=== PATIENT | female | born 1995 | race Caucasian/White ===

== ENCOUNTER 2016-08-20 20:26 | Emergency (ER) | payer BC, MEDICAID ==
[2016-08-20 21:03] VITALS: BP 128/76
--- NOTE | 2016-08-20 23:13 | UC ---
Arturo Wadsworth Billy, scribed for Patito Schwab DO on 08/20/16 at 2111 . General HPI - HPI Summary HPI Summary: Patient is a 21 year-old female coming to [facility] with right posterior neck pain and sore throat for approximately 1 week. She states that she may have been exposed to a dormmate with meningitis at [facility]. Patient describes rt sided posterior neck pain(no stiffness), severity 7/10 as well as a burning sore throat, severity 7/10. Sore throat is worse with PO intake, although she has no problem swallowing. She also states she has been eating and drinking fine. Patient reports waking up sweaty yesterday morning, nausea, minimal photophobia("light is annoying"), right ear pain, and pounding headache. No vomiting. No chest pain, cough, or SOB. No back pain or urinary symptoms. Patient was given 300 mg Rifampin prophylactically by school, but she has not taken it yet. - History of Current Complaint Chief Complaint: Stated Complaint: SORE THROAT,NECK & BACK ACHE Time Seen by Provider: 08/20/16 21:04 Hx Obtained From: Patient Onset/Duration: Gradual Onset, Lasting Days, Still Present Timing: Constant Onset Severity: Moderate Current Severity: Moderate Pain Intensity: 7 Pain Location at: Neck, sore throat, headache Character: burning sore throat Aggravating: sore throat worse with PO intake Alleviating: none Associated Signs & Symptoms: Positive: Diaphoresis, Fever - subjective, Headache , Nausea, Other - Earache, photophobia. Negative: Abdominal Pain, Back Pain, Cough, Chest Pain, Dizziness, Dysuria, SOB, Vomiting - Allergy/Home Medications Allergies/Adverse Reactions: Allergies Allergy/AdvReac Type Severity Reaction Status Date / Time No Known Allergies Allergy Verified 05/24/15 15:23 Home Medications: Home Medications RiFAMPin CAP* 300 mg PO DAILY 08/20/16 [History Confirmed 08/20/16] PMH/Surg Hx/FS Hx/Imm Hx - Additional Past Medical History Additional PMH: PMHx of asthma, eating disorder, ADD. Respiratory History Of: Reports: Asthma - Surgical History Surgical History: None - Family History Known Family History: Positive: Unknown - Patient is adopted, but her twin brother has bipolar disorder. - Social History Alcohol Use: Occasionally Substance Use Type: None Smoking Status (MU): Never Smoked Tobacco - Immunization History Most Recent Influenza Vaccination: LAST FALL Review of Systems Constitutional: Other - woke up sweaty yesterday morning Skin: Negative Eyes: Photophobia - "light is annoying" ENT: Ear Ache Respiratory: Negative Cardiovascular: Negative Gastrointestinal: Other - nausea Genitourinary: Negative Motor: Negative Neurovascular: Negative Musculoskeletal: Other: - neck pain Neurological: Headache Psychological: Negative All Other Systems Reviewed And Are Negative: Yes Physical Exam Triage Information Reviewed: Yes Appearance: Well-Appearing, No Pain Distress - Patient is smiling, laughing and comfortable. No sign of pain distress, Well-Nourished Vital Signs: Initial Vital Signs Temp 98.4 F 08/20/16 20:53 Pulse 70 08/20/16 20:53 Resp 97 08/20/16 20:53 BP 128/76 08/20/16 20:53 Pulse Ox 97 08/20/16 20:53 Vital Signs Reviewed: Yes Eyes: Positive: Conjunctiva Clear. Negative: Discharge ENT: Positive: Hearing grossly normal, Pharyngeal erythema, TMs normal, Tonsillar swelling - Equal bilaterally.. Negative: Nasal congestion, Nasal drainage, Tonsillar exudate, Trismus, Muffled/hoarse voice Dental Exam: Normal Neck: Positive: Supple, Tenderness @ - Paraspinal tenderness over the right posterior neck., Enlarged Nodes @ - rt sided. Negative: Nuchal Rigidity Respiratory: Positive: Lungs clear, Normal breath sounds, No respiratory distress, No accessory muscle use Cardiovascular: Positive: RRR, No Murmur Abdomen Description: Positive: Nontender, Soft. Negative: CVA Tenderness (R), CVA Tenderness (L) Bowel Sounds: Positive: Present Musculoskeletal Exam: Normal Musculoskeletal: Positive: Strength Intact Neurological: Positive: Alert, Muscle Tone Normal, Other: - A&Ox3, CN II-XII INTACT, SENSORY MOTOR INTACT, REFLEXES INTACT, NO CEREBELLAR SIGNS, FACIAL SYMMETRY, NEGATIVE ROMBERG, NORMAL GAIT. NEGATIVE KERNIGS & BRUDZINSKIS Psychological: Positive: Age Appropriate Behavior Skin Exam: Normal - Normal dry skin. Course/Dx - Differential Dx - Multi-Symptom Differential Diagnoses: Urinary Tract Infection, Other - strep throat, flu, uri Provider Diagnoses: uri Discharge - Discharge Plan Condition: Stable Disposition: HOME Patient Education Materials: Upper Respiratory Infection (ED) Referrals: Sejal Diaz DO [Primary Care Provider] - (follow up in 3-5 days if not improving) Additional Instructions: RIGHT NOW YOU APPEAR TO HAVE AN UPPER RESPIRATORY TRACT INFECTION. TESTS FOR INFLUENZA, STREP THROAT, AND URINE DIP STICK WERE ALL NEGATIVE. RIGHT NOW, YOUR SYMPTOMS ARE NOt SUSPICIOUS FOR MENINGITIS. HOWEVER, IF YOU DEVELOP ANY OF THE FOLLOWING: FEVER, VOMITING, PHOTOPHOBIA, NECK STIFFNESS, YOU SHOULD VISIT THE EMERGENCY ROOM IMMEDIATELY. IN THE MEANTIME, TAKE THE PROPHYLACTIC DOSE OF RIFAMPIN THAT WAS GIVEN TO YOU. GO HOME AND REST. The documentation as recorded by the kassiibArturo bergeron Billy accurately reflects the service I personally performed and the decisions made by , Patito Schwab DO.
== END 2016-08-20 22:15 | disposition home or self-care (01) ==
LOC: UCEAST 20:26
DX: J06.9 Acute upper respiratory infection, unspecified (principal); Z32.02 Encounter for pregnancy test, result negative
CPT/HCPCS: 81002; 81025; 87502; 87651; 99211; G0463

== ENCOUNTER 2017-07-31 13:20 | Emergency (ER) | payer BC, MEDICAID ==
[2017-07-31 14:50] VITALS: BP 140/71
--- NOTE | 2017-07-31 16:03 | UC ---
General HPI - HPI Summary HPI Summary: Patient presents with an unremarkable past medical history. She presents today with complaints of generalized fatigue, malaise, sore throat, cough and chest congestion. She presents requesting influenza testing She denies chest or abdominal pain, nausea, vomiting, diarrhea. - History of Current Complaint Chief Complaint: UCGeneralIllness Stated Complaint: sore throat, and aches Time Seen by Provider: 07/31/17 15:10 Hx Obtained From: Patient Hx Last Menstrual Period: [id number] Onset/Duration: Gradual Onset, Lasting Days Onset Severity: Mild Current Severity: Moderate Pain Intensity: 7 Associated Signs & Symptoms: Positive: Cough, Fever - Allergy/Home Medications Allergies/Adverse Reactions: Allergies Allergy/AdvReac Type Severity Reaction Status Date / Time No Known Allergies Allergy Verified 05/24/15 15:23 Home Medications: Home Medications Lisdexamfetamine Dimesylate [Vyvanse] 20 mg PO DAILY 07/31/17 [History Confirmed 07/31/17] PMH/Surg Hx/FS Hx/Imm Hx Previously Healthy: Yes - Surgical History Surgical History: None - Family History Known Family History: Positive: Unknown - Patient is adopted, but her twin brother has bipolar disorder. - Social History Occupation: Student Lives: Alone Alcohol Use: Occasionally Substance Use Type: None Smoking Status (MU): Never Smoked Tobacco - Immunization History Most Recent Influenza Vaccination: LAST FALL Review of Systems Constitutional: Fever, Chills, Fatigue Skin: Negative Eyes: Negative ENT: Sore Throat, Ear Ache, Nasal Discharge, Sinus Congestion Respiratory: Cough Cardiovascular: Negative Gastrointestinal: Negative Genitourinary: Negative Motor: Negative Neurovascular: Negative Musculoskeletal: Negative Neurological: Negative Psychological: Negative Is Patient Immunocompromised?: No All Other Systems Reviewed And Are Negative: Yes Physical Exam Triage Information Reviewed: Yes Appearance: Well-Appearing Vital Signs: Initial Vital Signs Temp 98.8 F 07/31/17 14:47 Pulse 67 07/31/17 14:47 Resp 19 07/31/17 14:47 BP 140/71 07/31/17 14:47 Pulse Ox 99 07/31/17 14:47 Vital Signs Reviewed: Yes Eye Exam: Normal ENT: Positive: Pharyngeal erythema Neck exam: Normal Neck: Positive: 1 Respiratory Exam: Normal Cardiovascular Exam: Normal Abdominal Exam: Normal Musculoskeletal Exam: Normal Neurological Exam: Normal Psychological Exam: Normal Skin Exam: Normal Course/Dx - Course Course Of Treatment: URI discharge: This is a pleasant patient with an upper respiratory tract infection. This appears to be viral and without significant evidence of severe respiratory distress, severe upper or lower airway compromise , hypoxemia, toxicity, shock, hemodynamic or cordiopulmonary instability, epiglottitis, peritonsilar abscess, retropharyngeal abscess, bacterial tracheitis, peumonia, or any disease process requiring other immediate surgical or medical intervention at this time. It is understood that if the patient is not improving as exspected or if other new symptoms or signs of concern develop , other etiologies or diagnoses may need to be considered requrring other tests , treatments, consultations, and/or admission. The diagnoses., plan, expectedcourse, follow-up , and return precautions were discussed and all quesions were answered. Infuenza and strep throat swabs were both negative. - Differential Dx - Multi-Symptom Differential Diagnoses: Other - uri Provider Diagnoses: uri Discharge - Discharge Plan Condition: Stable Disposition: HOME Patient Education Materials: Upper Respiratory Infection (DC) Referrals: Asuncion Blue MD [Primary Care Provider] -
== END 2017-07-31 16:09 | disposition home or self-care (01) ==
LOC: UCEAST 13:20
DX: J06.9 Acute upper respiratory infection, unspecified (principal)
CPT/HCPCS: 87502; 87651; 99211; G0463

== ENCOUNTER 2018-06-29 16:18 | Emergency (ER) | payer BC ==
[2018-06-29] MEDS ORDERED: Ketorolac INJ* 60 MG/2 ML VIAL IM ONE (16:38)
--- NOTE | 2018-06-29 16:51 | UC ---
Back Pain HPI - HPI Summary HPI Summary: 23-year-old woman comes to clinic today with a sudden onset of lumbar back pain. Started about an hour ago. It happened suddenly when she sat up. Patient is on an antibiotic for the last 3 days for urinary tract infection. No known fevers. No prior history of back problems. Pain is worse when she twists or turns. Pain is slightly less if she leans forward and slightly to the right. She does have some lower abdominal pain bilaterally which she's had on and off for months. - History of Current Complaint Chief Complaint: UCBackPain Stated Complaint: BACK PAIN Time Seen by Provider: 06/29/18 16:30 Hx Last Menstrual Period: na Pain Intensity: 9 - Allergies/Home Medications Allergies/Adverse Reactions: Allergies Allergy/AdvReac Type Severity Reaction Status Date / Time amphetamine [From Adderall] Allergy Intermediate haulicintio Verified 06/29/18 16:28 ns dextroamphetamine Allergy Intermediate haulicintio Verified 06/29/18 16:28 [From Adderall] ns Home Medications: Home Medications Levonorgestrel (Iud) [Mirena IUD] 20 mcg VAGINAL DAILY 06/29/18 [History Confirmed 06/29/18] Phenazopyridine TAB* [Pyridium 100 mg TAB*] 100 mg PO TID 06/29/18 [History Confirmed 06/29/18] Sulfamethoxazole/Trimethoprim [Sulfamethoxazole-Tmp Ss Tablet] 1 each PO DAILY WITH MEAL 06/29/18 [History Confirmed 06/29/18] PMH/Surg Hx/FS Hx/Imm Hx Previously Healthy: Yes - Surgical History Surgical History: None - Family History Known Family History: Positive: Unknown - Patient is adopted, but her twin brother has bipolar disorder. - Social History Alcohol Use: Occasionally Substance Use Type: None Smoking Status (MU): Never Smoked Tobacco - Immunization History Most Recent Influenza Vaccination: LAST FALL Review of Systems All Other Systems Reviewed And Are Negative: Yes Constitutional: Positive: Negative Skin: Positive: Negative Eyes: Positive: Negative ENT: Positive: Negative Respiratory: Positive: Negative Cardiovascular: Positive: Negative Gastrointestinal: Positive: Abdominal Pain Genitourinary: Positive: Negative Motor: Positive: Negative Neurovascular: Positive: Negative Musculoskeletal: Positive: Other: - LUMBAR BACK PAIN Neurological: Positive: Negative Psychological: Positive: Negative Is Patient Immunocompromised?: No Physical Exam Triage Information Reviewed: Yes Appearance: Well-Appearing, Well-Nourished, Pain Distress - MODERATE Vital Signs: Initial Vital Signs Temp 99.0 F 06/29/18 16:23 Pulse 60 06/29/18 16:23 Resp 20 06/29/18 16:23 BP 137/97 06/29/18 16:23 Pulse Ox 100 06/29/18 16:23 Vital Signs Reviewed: Yes Eye Exam: Normal Eyes: Positive: Conjunctiva Clear Neck exam: Normal Neck: Positive: Supple Respiratory: Positive: Lungs clear, Normal breath sounds, No respiratory distress Cardiovascular: Positive: RRR Abdomen Description: Positive: Soft, CVA Tenderness (L), Other: - MILD TENDERNESS TO PALPATION LOWER ABDOMEN. Negative: CVA Tenderness (R) Bowel Sounds: Positive: Present Musculoskeletal Exam: Normal Musculoskeletal: Positive: Strength Intact, ROM Intact Neurological Exam: Normal Neurological: Positive: Alert, Muscle Tone Normal Psychological Exam: Normal Psychological: Positive: Age Appropriate Behavior Skin Exam: Normal Back Pain Course/Dx - Course Course Of Treatment: Discussed the CT report with the patient and her mother. Patient's a Pyridium therefore the urinalysis results could not be obtained. The CT shows the possibility of renal tubular ectasia. I discussed this with the patient and her mother. The plan is to follow-up with urology for these findings. Patient will take ibuprofen as needed also sent a prescription for Flexeril to use as needed. They know that if anything gets worse the pain gets worse as fevers chills she feels ill that she should go directly to the emergency department. - Differential Dx/Diagnosis Provider Diagnosis: Left flank pain, Lumbar back pain Discharge - Sign-Out/Discharge Documenting (check all that apply): Patient Departure All imaging exams completed and their final reports reviewed: Yes - Discharge Plan Condition: Stable Disposition: HOME Prescriptions: Cyclobenzaprine TAB* [Flexeril 10 MG TAB*] 10 mg PO TID PRN #10 tab MDD 3 PRN Reason: Pain Patient Education Materials: Acute Low Back Pain (ED), Flank Pain (ED), Lower Back Exercises (ED) Referrals: Asuncion Blue MD [Primary Care Provider] - Additional Instructions: FOLLOW UP WITH YOUR PRIMARY CARE DOCTOR IF NOT COMPLETELY IMPROVED. FOLLOW UP WITH UROLOGY FOR FURTHER EVALUATION OF YOUR FLANK PAIN AND POSSIBLE MEDULLARY SPONGE KIDNEY. GO TO THE EMERGENCY DEPARTMENT FOR ANY WORSENING OF YOUR CONDITION; PAIN, FEVER , YOU FEEL ILL OR QUESTIONS OR CONCERNS. - Billing Disposition and Condition Condition: STABLE Disposition: Home
[2018-06-29 18:39] VITALS: BP 125/85
== END 2018-06-29 18:51 | disposition home or self-care (01) ==
LOC: UCEAST 16:18
DX: R10.9 Unspecified abdominal pain (principal); M54.5 Low back pain; Z88.8 Allergy status to other drugs, medicaments and biological substances
CPT/HCPCS: 74176; 84702; 87086; 96372; 99212; G0463; J1885

== ENCOUNTER 2018-07-01 18:38 | Emergency (ER) | payer BC ==
[2018-07-01] MEDS ORDERED: Dexamethasone IV* 4 MG/ML 1 ML (4 MG) IV SLOW PU ONE (19:27)
[2018-07-01] MEDS ORDERED: Ketorolac INJ* 30 MG/ML 1 ML VIAL IV PUSH ONE (19:27)
[2018-07-01] MEDS ORDERED: Methocarbamol* 100 MG/ML 10 ML VIAL IV ONE (19:29)
[2018-07-01 19:47] LABS: ABS Basophils 0 10^3/ul (0-0.2); ABS Eosinophils 0.1 10^3/ul (0-0.6); ABS Lymphocytes 1.5 10^3/ul (1.0-4.8); ABS Monocytes 0.4 10^3/ul (0-0.8); ABS Neutrophils 3.3 10^3/ul (1.5-7.7); ABS Nucleated RBC 0 10^3/ul; Eosinophil % 2.7 %; Hematocrit 45 % (35-47); Lymphocyte % 28.5 %; Mean Corpuscular HGB Conc 33 g/dl (31-36); Mean Corpuscular Hemoglobin 30 pg (27-31); Mean Corpuscular Volume 90 fL (80-97); Mean Platelet Volume 8.5 fL (7.4-10.4); Nucleated Red Blood Cells % 0.1; Platelet Count 195 10^3/ul (150-450); Red Blood Count 5.04 10^6/ul (4.00-5.40); Red Cell Distribution Width 13 % (10.5-15); White Blood Count 5.3 10^3/ul (3.5-10.8)
--- NOTE | 2018-07-01 20:01 | ED ---
GI/ HPI - HPI Summary HPI Summary: 23-year-old female presents with back pain for the past couple weeks. States she has a UTI keeps recurring since April. She is currently on Bactrim. She is taking muscle relaxer with no relief. States she has history of back pain that starts in the lower back and radiates down. Does not go into legs. No loss of bowel or bladder. No fevers. No saddle anesthesias. No weakness. Is able to ambulate with steady gait. States pain is better when she is hunched forward. She denies any abnormal vaginal discharge. No abdominal pain. No nausea and no vomiting. No diarrhea constipation. - History of Current Complaint Chief Complaint: EDUrogenitalProblems Time Seen by Provider: 07/01/18 19:19 Stated Complaint: BACK PAIN/POSS UTI Hx Last Menstrual Period: na Pain Intensity: 7 - Allergy/Home Medications Allergies/Adverse Reactions: Allergies Allergy/AdvReac Type Severity Reaction Status Date / Time amphetamine [From Adderall] Allergy Intermediate haulicintio Verified 07/01/18 19:00 ns dextroamphetamine Allergy Intermediate haulicintio Verified 07/01/18 19:00 [From Adderall] ns PMH/Surg Hx/FS Hx/Imm Hx Endocrine/Hematology History: Denies: Hx Diabetes, Hx Thyroid Disease Cardiovascular History: Denies: Hx Hypertension Respiratory History: Reports: Hx Asthma Denies: Hx Chronic Obstructive Pulmonary Disease (COPD) GI History: Denies: Hx Ulcer Sensory History: Reports: Hx Contacts or Glasses - CONTACTS Opthamlomology History: Reports: Hx Contacts or Glasses - CONTACTS Psychiatric History: Reports: Hx Eating Disorder Denies: Hx of Violent Episodes Against Others - Cancer History Cancer Type, Location and Year: none Infectious Disease History: No Infectious Disease History: Denies: Hx Hepatitis, Hx Human Immunodeficiency Virus (HIV), History Other Infectious Disease, Traveled Outside the [place] in Last 30 Days - Family History Known Family History: Positive: Unknown - Patient is adopted, but her twin brother has bipolar disorder. - Social History Alcohol Use: Occasionally Substance Use Type: Reports: None Smoking Status (MU): Never Smoked Tobacco Review of Systems Negative: Fever Negative: Chest Pain Negative: Shortness Of Breath Positive: dysuria Positive: Myalgia - back pain All Other Systems Reviewed And Are Negative: Yes Physical Exam Triage Information Reviewed: Yes Vital Signs On Initial Exam: Initial Vitals Temp Pulse Resp BP Pulse Ox 97.9 F 91 18 146/82 100 07/01/18 18:59 07/01/18 18:59 07/01/18 18:59 07/01/18 18:59 07/01/18 18:59 Vital Signs Reviewed: Yes Appearance: Positive: Well-Appearing Skin: Positive: Warm, Dry Head/Face: Positive: Normal Head/Face Inspection Eyes: Positive: Normal, Conjunctiva Clear ENT: Positive: Pharynx normal Respiratory/Lung Sounds: Positive: Clear to Auscultation, Breath Sounds Present Cardiovascular: Positive: Normal, RRR Abdomen Description: Positive: Nontender, Soft, CVA Tenderness (R), CVA Tenderness (L) Bowel Sounds: Positive: Present Musculoskeletal: Positive: Limited @ - back, Other - tenderness lower back, neg SLR, good pulses, sensation grossly intact Neurological: Positive: Normal, Normal Gait - patella Psychiatric: Positive: Normal Diagnostics - Vital Signs Vital Signs Temp Pulse Resp BP Pulse Ox 07/01/18 19:50 62 123/83 100 07/01/18 19:20 91 134/83 99 07/01/18 18:59 97.9 F 91 18 146/82 100 - Laboratory Lab Results: Lab Results 07/01/18 Range/Units 19:41 WBC 5.3 (3.5-10.8) 10^3/ul RBC 5.04 (4.00-5.40) 10^6/ul Hgb 15.0 (12.0-16.0) g/dl Hct 45 (35-47) % MCV 90 (80-97) fL MCH 30 (27-31) pg MCHC 33 (31-36) g/dl RDW 13 (10.5-15) % Plt Count 195 (150-450) 10^3/ul MPV 8.5 (7.4-10.4) fL Neut % (Auto) 61.5 % Lymph % (Auto) 28.5 % [place] % (Auto) 6.6 % Eos % (Auto) 2.7 % Baso % (Auto) 0.7 % Absolute Neuts (auto) 3.3 (1.5-7.7) 10^3/ul Absolute Lymphs (auto) 1.5 (1.0-4.8) 10^3/ul Absolute Monos (auto) 0.4 (0-0.8) 10^3/ul Absolute Eos (auto) 0.1 (0-0.6) 10^3/ul Absolute Basos (auto) 0 (0-0.2) 10^3/ul Absolute Nucleated RBC 0 10^3/ul Nucleated RBC % 0.1 Result Diagrams: 07/01/18 19:41 07/01/18 19:41 Lab Statement: Any lab studies that have been ordered have been reviewed, and results considered in the medical decision making process. Re-Evaluation - Re-Evaluation First Eval Re-Evaluation Time: 21:21 Change: Improved Comment: pain is better GIGU Course/Dx - Course Course Of Treatment: 23-year-old female presents with back pain for the past couple weeks. States she has a UTI keeps recurring since April. She is currently on Bactrim. She is taking muscle relaxer with no relief. States she has history of back pain that starts in the lower back and radiates down. Does not go into legs. No loss of bowel or bladder. No fevers. No saddle anesthesias. No weakness. Is able to ambulate with steady gait. States pain is better when she is hunched forward. She denies any abnormal vaginal discharge. No abdominal pain. No nausea and no vomiting. No diarrhea constipation. On exam has tenderness lower back. Neurovascular intact. Negative straight leg raise. Minimal pain over cva. Urine from 2 days ago shows no infection. CT was normal from 2 days ago. Ultrasound normal. White blood cell count normal. crp normal. gave robaxin, toradal and decadron with improvement. will prescribe robaxin. patient understand and agrees with plan. - Diagnoses Differential Diagnoses - Female: Pyelonephritis, Urinary Tract Infection, Other - back pain Provider Diagnoses: Back pain Discharge - Sign-Out/Discharge Documenting (check all that apply): Patient Departure - Discharge Plan Condition: Good Disposition: HOME Prescriptions: Methocarbamol TAB* [Robaxin 500 MG TAB*] 500 mg PO TID PRN #15 tab PRN Reason: Pain methylPREDNISolone [Medrol Dosepak 4 MG*] 4 mg PO .SEE AMIRA INSTRUCTION #1 packet Patient Education Materials: Back Pain (ED) Referrals: Asuncion Blue MD [Primary Care Provider] - Additional Instructions: Follow directions on package for Medrol pack Take robaxin three times a day, stop flexeril Use ibuprofen or Tylenol for pain every 6 hours ice/heat area, move as much as possible Follow up with primary within 5 days Return to ED if develop any new or worsening symptoms - Billing Disposition and Condition Condition: GOOD Disposition: Home
[2018-07-01 20:05] LABS: ALT 20 U/L (7-52); AST 33 U/L (13-39); Albumin 4.9 g/dL (3.2-5.2); Alkaline Phosphatase 42 U/L (34-104); Anion Gap 6 mmol/L (2-11); BUN/Creatinine Ratio 12.3 (8-20); Blood Urea Nitrogen 16 mg/dL (6-24); CO2 Carbon Dioxide 27 mmol/L (22-32); Calcium 10.4 mg/dL (8.6-10.3); Chloride 104 mmol/L (101-111); EGFR Non-African American 51.2 (>60); Globulin 2.4 g/dL (2-4); Glucose 105 mg/dL (70-100); Potassium 4.8 mmol/L (3.5-5.0); Sodium 137 mmol/L (135-145); Total Protein 7.3 g/dL (6.4-8.9)
[2018-07-01 20:11] LABS: HCG Pregnancy < 0.60 mIU/mL
[2018-07-01 20:23] LABS: C Reactive Protein < 1.00 mg/L (<8.01)
[2018-07-01 21:34] VITALS: BP 113/69
== END 2018-07-01 21:33 | disposition home or self-care (01) ==
LOC: ED 18:38
DX: M54.9 Dorsalgia, unspecified (principal); Z87.440 Personal history of urinary (tract) infections; Z88.8 Allergy status to other drugs, medicaments and biological substances
CPT/HCPCS: 36415; 76775; 80053; 84702; 85025; 86140; 96374; 96375; 99282; J1100; J1885; J2800

== ENCOUNTER 2018-10-17 17:17 | Emergency (ER) | payer BC ==
[2018-10-17 17:30] VITALS: BP 124/76
--- NOTE | 2018-10-17 18:01 | UC ---
Throat Pain/Nasal Malachi HPI - HPI Summary HPI Summary: 23 -year-old female who presents with a sore throat over the past couple of days. She was with a friend over the weekend who was diagnosed with mononucleosis. She states that she has had an intermittent sore throat every 2 weeks over the past winter. - History of Current Complaint Chief Complaint: UCGeneralIllness Stated Complaint: SORE THROAT, COUGH, CONGESTION Time Seen by Provider: 10/17/18 17:35 Hx Obtained From: Patient Hx Last Menstrual Period: 09/03/18 ?: No Onset/Duration: Gradual Onset Severity: Mild Pain Intensity: 4 - Allergies/Home Medications Allergies/Adverse Reactions: Allergies Allergy/AdvReac Type Severity Reaction Status Date / Time amphetamine [From Adderall] Allergy Intermediate haulicintio Verified 07/01/18 19:00 ns dextroamphetamine Allergy Intermediate haulicintio Verified 07/01/18 19:00 [From Adderall] ns PMH/Surg Hx/FS Hx/Imm Hx Previously Healthy: Yes - Surgical History Surgical History: None - Family History Known Family History: Positive: Unknown - Patient is adopted, but her twin brother has bipolar disorder. - Social History Alcohol Use: Occasionally Substance Use Type: None Smoking Status (MU): Never Smoked Tobacco - Immunization History Most Recent Influenza Vaccination: LAST FALL Review of Systems All Other Systems Reviewed And Are Negative: Yes ENT: Positive: Sore Throat Gastrointestinal: Positive: Diarrhea - Patient states she's had 4 bouts of diarrhea today. She denies any abdominal pain. Motor: Positive: Other - Patient states she has felt fatigued over the past couple of days. Is Patient Immunocompromised?: No Physical Exam Triage Information Reviewed: Yes Appearance: Well-Appearing, No Pain Distress, Well-Nourished Vital Signs: Initial Vital Signs Temp 97.9 F 10/17/18 17:24 Pulse 66 10/17/18 17:24 Resp 16 10/17/18 17:24 BP 124/76 10/17/18 17:24 Pulse Ox 99 10/17/18 17:24 Vital Signs Reviewed: Yes Eye Exam: Normal ENT: Positive: Pharyngeal erythema, Nasal congestion, Nasal drainage - Clear Nasal coryza, TMs normal, Uvula midline. Negative: Trismus, Muffled voice, Hoarse voice Neck exam: Normal Neck: Positive: Supple, Nontender, No Lymphadenopathy Respiratory: Positive: Lungs clear, Normal breath sounds, No respiratory distress, No accessory muscle use Cardiovascular: Positive: RRR, No Murmur, Pulses Normal, Brisk Capillary Refill Abdomen Description: Positive: Nontender, No Organomegaly, Soft Bowel Sounds: Positive: Present Musculoskeletal: Positive: Strength Intact, ROM Intact Neurological: Positive: Alert, Muscle Tone Normal Psychological: Positive: Normal Response To Family Skin Exam: Normal Throat Pain/Nasal Course/Dx - Course Course Of Treatment: Rapid strep test was negative. The mother requested a Monospot be drawn which was done. Patient can do warm saltwater gargles, throat lozenges, Tylenol for fever definite follow-up with primary care provider as needed if no improvement in symptoms. - Differential Dx/Diagnosis Provider Diagnosis: Pharyngitis Discharge - Sign-Out/Discharge Documenting (check all that apply): Patient Departure All imaging exams completed and their final reports reviewed: No Studies - Discharge Plan Condition: Fair Disposition: HOME Patient Education Materials: Mononucleosis (ED) Referrals: Asuncion Blue MD [Primary Care Provider] - Additional Instructions: Increase fluids, rest, Tylenol for fever every 4 hours as needed or Motrin every 8 hours as needed. We will call you with the results of the Monospot in one or 2 days when it's finished. If no follow up with your primary care provider for further care. - Billing Disposition and Condition Condition: FAIR Disposition: Home
--- NOTE | 2018-10-19 07:11 | UC ---
- Progress Note Progress Note: monospot neg no change renzoj 10/19/18 Course/Dx - Diagnoses Provider Diagnoses: Pharyngitis Discharge - Sign-Out/Discharge Documenting (check all that apply): Post-Discharge Follow Up All imaging exams completed and their final reports reviewed: No Studies - Discharge Plan Condition: Fair Disposition: HOME Patient Education Materials: Mononucleosis (ED) Referrals: Asuncion Blue MD [Primary Care Provider] - Additional Instructions: Increase fluids, rest, Tylenol for fever every 4 hours as needed or Motrin every 8 hours as needed. We will call you with the results of the Monospot in one or 2 days when it's finished. If no follow up with your primary care provider for further care. - Billing Disposition and Condition Condition: FAIR Disposition: Home
[2018-10-19 14:40] LABS: EBV Capsid Ag IgG Ab Positive (Negative); EBV Capsid Ag IgM Ab Negative (Negative); Epstein-Barr Nuclear Antigen Positive (Negative)
== END 2018-10-17 18:14 | disposition home or self-care (01) ==
LOC: UCCORT 17:17
DX: J02.9 Acute pharyngitis, unspecified (principal); Z88.8 Allergy status to other drugs, medicaments and biological substances
CPT/HCPCS: 36415; 86308; 86664; 86665; 87651; 99211; G0463

== ENCOUNTER 2019-09-09 00:59 | Emergency (ER) | payer BC ==
--- OUTSIDE RECORDS SUMMARY | 2019-09-09 01:06 | XMS REPORT | Continuity of Care Document ---
:1995 Author Organization [facility] Address [address] [place] [id number] Phone Care Team Providers Name Role Phone Melissa Berry NP Unavailable Unavailable Allergies, Adverse Reactions, Alerts Substance Reaction Status DEXTROAMPHETAMINE SULFATE Active DEXTROAMPHETAMINE SACCHARATE Active AMPHETAMINE SULFATE Active AMPHETAMINE ASPARTATE Active Medications Medication Instructions Dosage Effective Dates Status Comments (start - stop) METRONIDAZOLE 500 MG TAKE ONE TABLET BY 500 MG - Active TABLET MOUTH EVERY 12 HOURS MIRENA (unknown Not Available - Active strength) Problems Condition Effective Dates Clinical Status Comments (start - stop) Human immunodeficiency virus - [HIV] counseling Encounter for screening for - human immunodeficiency virus Encounter for ot general - cnsl and advice on contraception Encounter for routine checking of intrauterine contracep dev Encntr screen for infections w sexl mode of transmiss Acute vaginitis Dysuria Acute vaginitis Encounter for routine checking of intrauterine contracep dev Encntr screen for infections w sexl mode of transmiss Human immunodeficiency virus - [HIV] counseling Acute vaginitis Encntr screen for infections w sexl mode of transmiss Frequency of micturition Nicotine dependence, unspecified, uncomplicated Encounter for routine checking of intrauterine contracep dev Candidiasis of vulva and vagina Human immunodeficiency virus - [HIV] counseling Encounter for screening for - human immunodeficiency virus Encntr screen for infections w sexl mode of transmiss Acute vaginitis Noninflammatory disorder of vagina, unspecified Encounter for screening for oth infec/parastc diseases Unsp abnormal cytological findings in specimens from vagina Human immunodeficiency virus - [HIV] counseling Encounter for test, result negative Encntr screen for infections w sexl mode of transmiss Encounter for routine checking of intrauterine contracep dev Acute vaginitis Encounter for screening for - human immunodeficiency virus Encntr screen for infections w sexl mode of transmiss Encounter for routine checking of intrauterine contracep dev Noninflammatory disorder of vagina, unspecified Dysuria Acute vaginitis IUC Insertion Anemia, Screening PT, Negative IUC Insertion Yeast-vulvovaginal STI Screening Family Planning Counseling Anemia - Active Managed per PCP, last checked 2015 and "WNL" per patient report Procedures Procedure Date No information Results Test Name Date and Time Measure Units Reference Range Abnormal Flag Status Comments No information Advance Directives Directive Yes / No Effective Date File Name No information Encounters Encounter Practice Location Reason(s) Diagnoses Date Provider Providers Description For Visit Copied on Encounter [facility] [place] . [facility] [address] [facility] [address] [facility], [place], [place], [place], [id number], [id number]. [place] tel:+ tel:[phone] [facility] Referring [facility] [place] immunodeficiency . Provider: [facility] virus [HIV] 0 [address] [facility], counselingEncounter [facility], [address] screening for [address], [address], [facility] human [place], [address], [place], immunodeficiency [place], [place], [id number], [place] [address]. [place], [address]. [place] ot general cnsl tel: tel:+60 tel:+[phone] and advice on [phone] contraceptionEncoun ter for routine checking of intrauterine contracep devEncntr screen for infections w sexl mode of transmissAcute vaginitis [facility] DysuriaAcute [facility] Referring [facility] [place] vaginitisEncounter Mary. Provider: [facility] for routine [address], checking of [place], [address], [address] [place] [address], [place] contracep devEncntr [place], St, [place], [place], [id number], [place] [address], [place], [address]. [place] mode of transmiss [place]. tel:+ [phone] [facility] Jan- [facility] [place] immunodeficiency Melissa. [facility] virus [HIV] [address], counselingAcute [place] [address], St, [place] screen for [place], [place], infections [place]l [place], [id number], mode of transmiss [address]. [place] tel: tel: [phone] [facility] Frequency of Michael- [facility] Referring [facility] [place] micturitionNicotine 0 [place]. Provider: [facility] dependence, [address], unspecified, [place], [address], [address], [address] ter for routine [place], [address], [place], [place], [id number], [place]uter[place] [address], [place], [address]. [place] contracep [place]. tel:+ tel:[phone] devCandidiasis of tel: [phone] vulva and vagina [id number] [facility] [place] Referring [facility] [place] immunodeficiency [facility] Provider: Of [facility] virus [HIV] 9 [address]. [place] [place], counselingEncounter [address] for screening for [place], St, New human St, [address] [place], [place], immunodeficiency [place], [address], [id number], virusEncntr screen [place], [place], [place] [address]. [place], [address]. tel:[phone] sexl mode of tel: tel:+ [phone] transmissAcute [phone] vaginitisNoninflamm atory disorder of vagina, unspecifiedEncounte r for screening for oth infec/parastc diseasesUnsp abnormal cytological findings in specimens from vagina [facility] [place] immunodeficiency [facility] virus [HIV] [address], counselingEncounter [address] for test, St, [facility] result [place], [place], negativeEncntr [id number], screen for [place] infections w sexl tel:[phone] mode of [id number] transmissEncounter for routine checking of intrauterine contracep devAcute vaginitisEncounter for screening for human immunodeficiency virus [facility] Encntr screen for [place] [facility] [place] infections w sexl 2 Mray. [facility] mode of [address], transmissEncounter [place] [address], St, [place] checking of [place], [place]ine [place], [id number], contracep [address], [place] devNoninflammatory [place]. tel:[phone] disorder of vagina, [phone] unspecifiedDysuriaA cute vaginitis [facility] IUC Insertion [facility] Ref[facility] [place] . Provider: [facility] [address], [place], [address], [address], [facility], [address], [place], [place], [place], [id number], [address]. [place], [address]. [place] tel:+60 tel:+607 tel:[phone] [facility] Anemia, [facility] [place] ScreeningPT, Melissa. [facility] NegativeIUC [address], Insertion [place] [address], St, [place], [place], [id number], [address]. [place] tel:+60 tel:[phone] [facility] Yeast-vulvovaginalS [place] [facility] [place] TI ScreeningFamily May. [facility] Planning Counseling [address], [place] [address], St, [place], [place], [id number], [id number]. [place] tel:+60 tel:[phone] Family History Family Member Diagnosis Age At Onset Sister No history of Myocardial infarction Mother No history of Stroke Father No history of Stroke Mother No history of Myocardial infarction Sister No history of Stroke Father No history of Myocardial infarction Brother No history of Myocardial infarction Brother No history of Stroke Immunizations Vaccine Date Status Comments No information Payers Payer name Insurance type Covered green party ID Authorization(s) [facility] [id number] Social History Type Description Quantity Date Captured Comments Sex Female Vital Signs Date / Height Weight BMI Pulse Blood Temperature Respiratory Body Head BMI Pulse Inhaled Time: Rate Pressure Rate Surface Circumference percentile Ox Ox Area No information Chief Complaint And Reason For Visit No information Reason For Referral Reason For Referral No information Plan Of Treatment Date Type Action Status Goal Tobacco cessation counseling completed History Of Present Illness Encounter Date Complaint History Of Present Illness No information Functional Status Date Functional Assessment No information Medications Administered Medication Instructions Dosage Effective Dates (start - stop) Status Comments No information Instructions Date Instruction Additional Information No information Assessments Type Assessment Date No information Goals Health Concern Goal Type Priority Status Date No information Medical Equipment Description Device Aldie Device Identifier Effective Dates (start - stop ) Status No information Mental Status Date Cognitive Assessment No information Health Concerns Observation Date No information Concern Status Date No information
[2019-09-09 02:40] LABS: ABS Eosinophils 0.1 10^3/ul (0-0.6); ABS Lymphocytes 1.2 10^3/ul (1.0-4.8); ABS Monocytes 0.4 10^3/ul (0-0.8); ABS Neutrophils 4.9 10^3/ul (1.5-7.7); Hematocrit 39 % (35-47); Hemoglobin 13.4 g/dL (12.0-16.0); Lymphocyte % 17.8 %; Mean Corpuscular HGB Conc 35 g/dL (31-36); Mean Corpuscular Hemoglobin 31 pg (27-31); Mean Corpuscular Volume 89 fL (80-97); Mean Platelet Volume 8.7 fL (7.4-10.4); Platelet Count 206 10^3/uL (150-450); Red Blood Count 4.33 10^6 /uL (3.70-4.87); Red Cell Distribution Width 13 % (10-15); White Blood Count 6.6 10^3/uL (3.5-10.8)
[2019-09-09 02:42] LABS: Urine Appearance Cloudy; Urine Bilirubin Negative (Negative); Urine Blood Negative (Negative); Urine Color Yellow; Urine Glucose Negative (Negative); Urine Ketones Trace (Negative); Urine Nitrite Negative (Negative); Urine Protein 1+(30 mg/dL) (Negative); Urine Specific Gravity 1.031 (1.010-1.030); Urine Urobilinogen Negative (Negative)
[2019-09-09 02:43] LABS: Urine Bacteria Absent (Absent); Urine Red Blood Cell Trace(0-2/hpf) (Absent); Urine Squamous Epithelial Cell Present (Absent); Urine White Blood Cell Trace(0-5/hpf) (Absent)
[2019-09-09 03:05] LABS: ALT 35 U/L (7-52); AST 46 U/L (13-39); Albumin/Globulin Ratio 1.9 (1-3); Alkaline Phosphatase 60 U/L (34-104); Amylase 172 U/L (29-103); Anion Gap 5 mmol/L (2-11); BUN/Creatinine Ratio 21.2 (8-20); Blood Urea Nitrogen 29 mg/dL (6-24); C Reactive Protein < 1.00 mg/L (<8.01); CO2 Carbon Dioxide 29 mmol/L (22-32); Chloride 105 mmol/L (101-111); EGFR African American 57.8 (>60); EGFR Non-African American 47.8 (>60); Globulin 2.1 g/dL (2-4); Glucose 103 mg/dL (70-100); Potassium 3.8 mmol/L (3.5-5.0); Sodium 139 mmol/L (135-145); Total Protein 6.1 g/dL (6.4-8.9)
[2019-09-09 03:11] LABS: HCG Pregnancy < 0.60 mIU/mL
[2019-09-09] MEDS ORDERED: NS 0.9% 1000 ML** 1,000 ML IV ONE (03:23)
--- NOTE | 2019-09-09 03:33 | ED ---
Abdominal Pain/Female - HPI Summary HPI Summary: This pt is a 24 Y/O F presenting to [facility] with a CC of pain under her L ribs that was rated a 5/10 in severity. She states that at the onset she became nauseous and vomited. She also reports that the pain was increased with breathing and movement. She states that the pain radiate up to her shoulder. She denies any fevers, headaches, myalgia, coughs, and chills. She states that her symptoms have all resolved. She denies any pertinent PMHx. She has a FHx of DM type 2. She states that she ate steak and rice cakes last. - History of Current Complaint Chief Complaint: EDAbdPain Stated Complaint: ABD PAIN PER PT Time Seen by Provider: 09/09/19 02:23 Hx Obtained From: Patient Hx Last Menstrual Period: 09/03/18 ?: No Onset/Duration: Sudden Onset, Lasting Minutes - 40 minutes, Resolved Timing: Minutes - 40 minutes Severity Initially: Moderate Severity Currently: Moderate Pain Intensity: 5 Pain Scale Used: 0-10 Numeric Location: Discrete At: LUQ Radiates: Yes Radiates to: Other - L shoulder Aggravating Factor(s): Movement, Deep Breaths Alleviating Factor(s): Spontaneous Resolution Associated Signs and Symptoms: Positive: Negative - fevers, headaches, myalgia, coughs, and chills., Nausea, Vomiting. Negative: Fever, Cough Allergies/Adverse Reactions: Allergies Allergy/AdvReac Type Severity Reaction Status Date / Time amphetamine [From Adderall] Allergy Intermediate haulicintio Verified 09/09/19 01:01 ns dextroamphetamine Allergy Intermediate haulicintio Verified 09/09/19 01:01 [From Adderall] ns Home Medications: Home Medications Lisdexamfetamine Dimesylate [Vyvanse] 30 mg PO DAILY 07/31/17 [History Confirmed 10/17/18] Levonorgestrel (Iud) [Mirena IUD] 20 mcg VAGINAL DAILY 06/29/18 [History Confirmed 10/17/18] PMH/Surg Hx/FS Hx/Imm Hx Previously Healthy: Yes Endocrine/Hematology History: Denies: Hx Diabetes, Hx Thyroid Disease Cardiovascular History: Denies: Hx Hypertension Respiratory History: Reports: Hx Asthma Denies: Hx Chronic Obstructive Pulmonary Disease (COPD) GI History: Denies: Hx Ulcer Sensory History: Reports: Hx Contacts or Glasses - CONTACTS Opthamlomology History: Reports: Hx Contacts or Glasses - CONTACTS Psychiatric History: Reports: Hx Eating Disorder Denies: Hx of Violent Episodes Against Others - Cancer History Cancer Type, Location and Year: none Hx Chemotherapy: No Hx Radiation Therapy: No - Surgical History Surgical History: None - Immunization History Immunizations Up to Date: Yes Infectious Disease History: No Infectious Disease History: Denies: Hx Hepatitis, Hx Human Immunodeficiency Virus (HIV), History Other Infectious Disease, Traveled Outside the [place] in Last 30 Days - Family History Known Family History: Positive: Unknown - Patient is adopted, but her twin brother has bipolar disorder. - Social History Alcohol Use: Occasionally Hx Substance Use: No Substance Use Type: Reports: None Hx Tobacco Use: No Smoking Status (MU): Never Smoked Tobacco Review of Systems Negative: Fever, Chills Negative: Chest Pain Positive: Shortness Of Breath Positive: Abdominal Pain, Vomiting, Nausea Negative: Myalgia Negative: Headache All Other Systems Reviewed And Are Negative: Yes Physical Exam - Summary Physical Exam Summary: General: Well-developed, Well-nourished female who is mildly anxious appearing. No acute distress. HEENT: Normocephalic, Atraumatic. Eyes: Conjuctiva normal, PERRL. Ears: TMs within normal limits. Nares: (-) discharge, (-) erythema. Oropharynx: Clear, mucous membranes moist, (-) exudates. Neck: Soft, FROM, (-) lymphadenopathy, (-) thyromegaly, (-) JVD. Cardiovascular: Normal sinus rhythm, (-) murmur. Lungs: Clear to auscultation bilaterally (-) wheezes, (-) rales, (-) rhonchi. Abdomen: Soft, non-tender, non-distended, (-) organomegaly, normal bowel sounds. Back: (-) CVA tenderness Extremities: No edema. Skin: Warm, dry, (-) rash. Neuro: Alert and oriented x3, no focal deficits. Psychiatric: Mood normal, affect normal. Triage Information Reviewed: Yes Vital Signs On Initial Exam: Initial Vitals Temp Pulse Resp BP Pulse Ox 97.6 F 81 15 159/99 100 09/09/19 00:59 09/09/19 00:59 09/09/19 00:59 09/09/19 00:59 09/09/19 00:59 Vital Signs Reviewed: Yes Procedures - Sedation Patient Received Moderate/Deep Sedation with Procedure: No Diagnostics - Vital Signs Vital Signs Temp Pulse Resp BP Pulse Ox 09/09/19 00:59 97.6 F 81 15 159/99 100 - Laboratory Lab Results: Lab Results 09/09/19 09/09/19 09/09/19 Range/Units 02:30 02:30 02:30 WBC 6.6 (3.5-10.8) 10^3/uL RBC 4.33 (3.70-4.87) 10^6 /uL Hgb 13.4 (12.0-16.0) g/dL Hct 39 (35-47) % MCV 89 (80-97) fL MCH 31 (27-31) pg MCHC 35 (31-36) g/dL RDW 13 (10-15) % Plt Count 206 (150-450) 10^3/uL MPV 8.7 (7.4-10.4) fL Neut % (Auto) 74.1 % Lymph % (Auto) 17.8 % Berks % (Auto) 6.7 % Eos % (Auto) 1.0 % Baso % (Auto) 0.4 % Absolute Neuts (auto) 4.9 (1.5-7.7) 10^3/ul Absolute Lymphs (auto) 1.2 (1.0-4.8) 10^3/ul Absolute Monos (auto) 0.4 (0-0.8) 10^3/ul Absolute Eos (auto) 0.1 (0-0.6) 10^3/ul Absolute Basos (auto) 0.0 (0-0.2) 10^3/ul Absolute Nucleated RBC 0.0 10^3/ul Nucleated RBC % 0.0 Sodium 139 (135-145) mmol/L Potassium 3.8 (3.5-5.0) mmol/L Chloride 105 (101-111) mmol/L Carbon Dioxide 29 (22-32) mmol/L Anion Gap 5 (2-11) mmol/L BUN 29 H (6-24) mg/dL Creatinine 1.37 H (0.51-0.95) mg/dL Est GFR ( Amer) 57.8 (>60) Est GFR (Non-Af Amer) 47.8 (>60) BUN/Creatinine Ratio 21.2 H (8-20) Glucose 103 H (70-100) mg/dL Lactic Acid (0.5-2.0) mmol/L Calcium 10.0 (8.6-10.3) mg/dL Total Bilirubin 0.40 (0.2-1.0) mg/dL AST 46 H (13-39) U/L ALT 35 (7-52) U/L Alkaline Phosphatase 60 (34-104) U/L C-Reactive Protein < 1.00 (<8.01) mg/L Total Protein 6.1 L (6.4-8.9) g/dL Albumin 4.0 (3.2-5.2) g/dL Globulin 2.1 (2-4) g/dL Albumin/Globulin Ratio 1.9 (1-3) Amylase 172 H (29-103) U/L Lipase 415 H (11.0-82.0) U/L Beta HCG, Quant < 0.60 mIU/mL Urine Color Yellow Urine Appearance Cloudy Urine pH 6.0 (5-9) Ur Specific Sylvester 1.031 H (1.010-1.030) Urine Protein 1+(30 mg/dl) A (Negative) Urine Ketones Trace A (Negative) Urine Blood Negative (Negative) Urine Nitrate Negative (Negative) Urine Bilirubin Negative (Negative) Urine Urobilinogen Negative (Negative) Ur Leukocyte Esterase Negative (Negative) Urine WBC (Auto) Trace(0-5/hpf) (Absent) Urine RBC (Auto) Trace(0-2/hpf) (Absent) Ur Squamous Epith Cells Present A (Absent) Urine Bacteria Absent (Absent) Urine Glucose Negative (Negative) 09/09/19 Range/Units 02:30 WBC (3.5-10.8) 10^3/uL RBC (3.70-4.87) 10^6 /uL Hgb (12.0-16.0) g/dL Hct (35-47) % MCV (80-97) fL MCH (27-31) pg MCHC (31-36) g/dL RDW (10-15) % Plt Count (150-450) 10^3/uL MPV (7.4-10.4) fL Neut % (Auto) % Lymph % (Auto) % Berks % (Auto) % Eos % (Auto) % Baso % (Auto) % Absolute Neuts (auto) (1.5-7.7) 10^3/ul Absolute Lymphs (auto) (1.0-4.8) 10^3/ul Absolute Monos (auto) (0-0.8) 10^3/ul Absolute Eos (auto) (0-0.6) 10^3/ul Absolute Basos (auto) (0-0.2) 10^3/ul Absolute Nucleated RBC 10^3/ul Nucleated RBC % Sodium (135-145) mmol/L Potassium (3.5-5.0) mmol/L Chloride (101-111) mmol/L Carbon Dioxide (22-32) mmol/L Anion Gap (2-11) mmol/L BUN (6-24) mg/dL Creatinine (0.51-0.95) mg/dL Est GFR ( Amer) (>60) Est GFR (Non-Af Amer) (>60) BUN/Creatinine Ratio (8-20) Glucose (70-100) mg/dL Lactic Acid 1.0 (0.5-2.0) mmol/L Calcium (8.6-10.3) mg/dL Total Bilirubin (0.2-1.0) mg/dL AST (13-39) U/L ALT (7-52) U/L Alkaline Phosphatase (34-104) U/L C-Reactive Protein (<8.01) mg/L Total Protein (6.4-8.9) g/dL Albumin (3.2-5.2) g/dL Globulin (2-4) g/dL Albumin/Globulin Ratio (1-3) Amylase (29-103) U/L Lipase (11.0-82.0) U/L Beta HCG, Quant mIU/mL Urine Color Urine Appearance Urine pH (5-9) Ur Specific Sylvester (1.010-1.030) Urine Protein (Negative) Urine Ketones (Negative) Urine Blood (Negative) Urine Nitrate (Negative) Urine Bilirubin (Negative) Urine Urobilinogen (Negative) Ur Leukocyte Esterase (Negative) Urine WBC (Auto) (Absent) Urine RBC (Auto) (Absent) Ur Squamous Epith Cells (Absent) Urine Bacteria (Absent) Urine Glucose (Negative) Result Diagrams: 09/09/19 02:30 09/09/19 02:30 Lab Statement: Any lab studies that have been ordered have been reviewed, and results considered in the medical decision making process. - CT CT A/P CT Interpretation Completed By: Radiologist Summary of CT Findings: Small amount of fluid underneath the spleen and in the cul-de-sac. The. etiology of the fluid is not clear. The appearance of the colon and small bowel. are not remarkable. No adnexal cysts. No and abnormal enhancement in the. pelvis. The appearance of the pancreas appears normal. The kidneys are not. remarkable. ED physician has reviewed this report. Abdominal Pain Fem Course/Dx - Course Course Of Treatment: 24-year-old female presents from home with abdominal pain. She states earlier tonight she developed this sharp sudden pain under her left rib cage. Also some discomfort in her left shoulder. She states she had an episode of vomiting at that time. After waiting a period of time to be seen she states she is feeling well at this time. She denies any recent fevers or chills. No nausea. No change in her bowels. She denies any ingestion of supplements or drugs. Patient denies any medical history. Her physical exam demonstrates no significant abnormality. However her laboratories demonstrated an elevated amylase, lipase, AST. CAT scan of her abdomen and pelvis demonstrates fluid behind her spleen and in the cul-de-sac. Normal bowels, pancreas, kidneys. Discussed the CT findings with patient at length. She continues to feel well. Advised her of her abnormal CT findings. Advised her to follow up with PCP. Advised her to follow sooner for any worsening symptoms. - Diagnoses Provider Diagnoses: Abnormal abdominal CT scan, Elevated amylase and lipase, LUQ abdominal pain Discharge ED - Sign-Out/Discharge Documenting (check all that apply): Patient Departure - discharge - Discharge Plan Condition: Good Disposition: HOME Patient Education Materials: Acute Abdominal Pain (ED) Referrals: Asuncion Blue MD [Primary Care Provider] - 2 Days Additional Instructions: PLEASE FOLLOW UP WITH YOUR PRIMARY CARE PHYSICIAN IN THE NEXT 1-3 DAYS. RETURN TO THE EMERGENCY DEPARTMENT FOR ANY NEW OR WORSENING SYMPTOMS. - Billing Disposition and Condition Condition: GOOD Disposition: Home - Attestation Statements Document Initiated by Scribe: Yes Documenting Scribe: Gil Sanford Provider For Whom Scribe is Documenting (Include Credential): Allegra Henry MD Scribe Attestation: I, Gil Sanford, scribed for Allegra Henry MD on 09/10/19 at 0650. Scribe Documentation Reviewed: Yes Provider Attestation: The documentation as recorded by the scribeGil accurately reflects the service I personally performed and the decisions made by me, Allegra Henry MD Status of Scribe Document: Viewed
[2019-09-09] MEDS ORDERED: Iodixanol* (CONTRAST) 320 MG/ML 100 ML SDV IV ONE (03:39)
[2019-09-09 05:20] VITALS: BP 105/53
== END 2019-09-09 05:19 | disposition home or self-care (01) ==
LOC: ED 00:59
DX: R10.12 Left upper quadrant pain (principal); R74.8 Abnormal levels of other serum enzymes; R93.5 Abnormal findings on diagnostic imaging of other abdominal regions, including retroperitoneum; Z88.8 Allergy status to other drugs, medicaments and biological substances
CPT/HCPCS: 36415; 74177; 80053; 81003; 81015; 82150; 83605; 83690; 84702; 85025; 86140; 87086; 96360; 96361; 99282